=== PATIENT | male | born 1970 | race Caucasian/White ===

== ENCOUNTER 2016-10-23 09:27 | Emergency (ER) | payer MEDICAID, OTHER ==
--- NOTE | 2016-10-23 10:04 | EDPHY ---
H & P Time Seen by Provider: 10/23/16 09:50 HPI/ROS: CHIEF COMPLAINT: Tooth infection HISTORY OF PRESENT ILLNESS: Patient is a 46-year-old male with recurrent tooth infection. The patient states he developed an infected tooth a few weeks ago. He is placed on penicillin. He took his entire course. He went saw dentist was told that he needed a root canal. He was unable to for for the procedure so he has been shopping for dentist. He found a new dentist who placed him on amoxicillin for return of his dental pain and facial swelling. He has taken 1 day of the amoxicillin thus far. He came in the emergency department because he was concerned amoxicillin is not working. He has no fevers or chills. The swelling is been stable. No pain with movement of his jaw. REVIEW OF SYSTEMS: My complete review of systems is negative except as mentioned in the HPI. Past Medical/Surgical History: Includes dental infection Smoking Status: Current every day smoker Physical Exam: Vitals noted General Appearance: Alert and no distress. Head/face: Pupils equal. Normal. Patient has poor dentition in the left upper aspect of his jaw. There is mild dental tenderness palpation. No surrounding erythema or discharge. He has no facial redness. Mild left-sided facial swelling. Respiratory: No respiratory distress. Cardiac: regular rate and rhythm. Extremities: Full range of motion, normal appearing. Skin: No rashes or lesions. Neuro: Alert. Normal mood and affect. Constitutional: Initial Vital Signs Temperature (C) 36.6 C 10/23/16 09:30 Heart Rate 88 10/23/16 09:30 Respiratory Rate 14 10/23/16 09:30 Blood Pressure 133/89 H 10/23/16 09:30 O2 Sat (%) 96 10/23/16 09:30 O2 Delivery Mode Room Air Allergies/Adverse Reactions: meperidine HCl [From Demerol] Allergy (Unknown, Verified 04/30/16 14:51) "makes me sick" Home Medications: Medication Instructions Recorded Hydrocodone/APAP 5/325 [[place] 1 - 2 each PO Q6 PRN #20 tab 04/30/16 5/325] Penicillin V Potassium [Pen Vk] 500 mg PO TID #21 tab 04/30/16 Clindamycin HCl [Clindamycin] 300 mg PO TID #30 cap 10/23/16 Medical Decision Making ED Course/Re-evaluation: In the emergency department I discussed possible etiologies with the patient. I recommend he continue the amoxicillin. If he does not improve by tomorrow morning he will start clindamycin. He was given a prescription for this. He is aware he needs close follow-up with his dentist for possible tooth extraction versus root canal. He is given warnings prior to leaving. He will return with worsening symptoms. Differential Diagnosis: My differential includes but is not limited to dental fracture, dental caries, abscess, cellulitis Departure - Departure Disposition: Home, Routine, Self-Care Clinical Impression: Tooth ache Condition: Good Instructions: Toothache (ED) Referrals: [facility] [Outside] - As per Instructions [facility] [Outside] - As per Instructions Prescriptions: Clindamycin HCl [Clindamycin] 300 mg PO TID #30 cap
[2016-10-23 10:18] VITALS: BP 133/87; PULSE 76; RESP 16; TEMP 98.1; O2SAT 98
== END 2016-10-23 10:18 | disposition home or self-care (01) ==
DX: K08.89 Other specified disorders of teeth and supporting structures (principal); F17.200 Nicotine dependence, unspecified, uncomplicated

== ENCOUNTER 2017-01-10 11:59 | Emergency (ER) | payer MEDICAID ==
[2017-01-10] MEDS ORDERED: LORazepam 1 MG TAB PO ONE (12:19)
--- NOTE | 2017-01-10 12:20 | EDPHY ---
HPI/HX/ROS/PE/MDM Narrative: CHIEF COMPLAINT:M1 hold, suicidal HPI: patient is a 46-year-old male who admits to ongoing meth use. He was brought to the emergency department by [place] [employer] on an M1 hold. They were contacted by female, apparently his girlfriend, who states that the patient was suicidal. Patient told them that he had a plan to either jump in front of a vehicle or potentially fake pulling a gun on the police that they would kill him. The patient admits to this on my exam. He denies any other significant concerns or complaints. REVIEW OF SYSTEMS: Aside from elements discussed in the HPI, a comprehensive 10-point review of systems was reviewed and is negative. PMH: Includes history of meth amphetamine abuse, depression SOCIAL HISTORY: admits to amphetamine abuse. Has a girlfriend. PHYSICAL EXAM: General:Patient is awake, in no acute distress. Head: Atraumatic, normocephalic ENT:Eyes are normal to inspection. ENT inspection normal. Neck: Normal inspection. Full range of motion. Respiratory:No respiratory distress. No stridor. Skin: Normal color. No rash. Warm and dry. Extremities: Normal appearance. Full range of motion. Neuro: Normal motor function. Normal sensory function. Psychiatric: Depressed affect. Admits to active suicidal ideation. (Jermaine Arreguin) MDM: Care assumed at 1500 by Rodríguez with plan for evaluation when clinically cleared. Positive for methamphetamine. Signed out to the overnight physician Dr. Aguilar at 2200. (Scot Hinojosa) 0155AM: Patient has been seen evaluated by mental health. They are recommending CSU placement. 0603AM: This patient has been accepted at [facility]. EMTALA will be filled out. Appropriate transfer be set up. 0704AM: This patient was adamant about not going to [facility]. Mental help please re-consult this morning and evaluated him. They felt that does not need inpatient psychiatric hospitalization. They feel comfortable with him being discharged. Dr. Calderón with psychiatry was consulted and would like to lift a hold. He can be discharged safely from the emergency room. I did going Greet the patient and talk to him he does contract for safety feels better with this plan of going home as he wants to retain his job. Contracts for safety he however does understand if he feels suicidal or anger or any questions or concerns or change in his mood he should return immediately to the emergency room. (Ankit Aguilar) - Data Points Laboratory Results: Laboratory Results 01/10/17 12:30 01/10/17 12:30 Medications Given: Discontinued Medications Acetaminophen (Tylenol) 650 mg PO EDNOW ONE Stop: 01/11/17 01:49 Last Admin: 01/11/17 01:50 Dose: 650 mg Lorazepam (Ativan) 1 mg PO EDNOW ONE Stop: 01/10/17 12:20 Last Admin: 01/10/17 12:39 Dose: 1 mg Lorazepam (Ativan) 1 mg PO EDNOW ONE Stop: 01/11/17 01:49 Last Admin: 01/11/17 01:51 Dose: 1 mg Olanzapine (Zyprexa Zydis) 10 mg PO EDNOW ONE Stop: 01/10/17 13:10 Last Admin: 01/10/17 13:15 Dose: 10 mg General Time Seen by Provider: 01/10/17 12:00 Initial Vital Signs: Initial Vital Signs Temperature (C) 36.9 C 01/10/17 12:09 Heart Rate 112 H 01/10/17 12:09 Respiratory Rate 24 H 01/10/17 12:09 Blood Pressure 118/103 H 01/10/17 12:09 O2 Sat (%) 95 01/10/17 12:09 O2 Delivery Mode Room Air Allergies/Adverse Reactions: meperidine HCl [From Demerol] Allergy (Unknown, Verified 04/30/16 14:51) "makes me sick" Home Medications: Medication Instructions Recorded Hydrocodone/APAP 5/325 [[place] 1 - 2 each PO Q6 PRN #20 tab 04/30/16 5/325] Penicillin V Potassium [Pen Vk] 500 mg PO TID #21 tab 04/30/16 Clindamycin HCl [Clindamycin] 300 mg PO TID #30 cap 10/23/16 Departure - Departure Disposition: Home, Routine, Self-Care Clinical Impression: Suicidal ideation, Methamphetamine abuse Condition: Good Instructions: Depression (ED) Additional Instructions: 1. Return emergency room immediately if he develops any worsening symptoms. This includes feeling suicidal worsening depression or you do not feel well please return immediately to the emergency room. Referrals: [facility],. [Clinic] - As per Instructions Jose Mednia MD [Medical Doctor] - As per Instructions
[2017-01-10 12:56] LABS: % IMMATURE GRANULYOCYTES 0.2 % (0.0-1.1); ABSOLUTE IMMATURE GRANULOCYTES 0.01 10^3/uL (0.00-0.10); ADD DIFF? NO; ADD MORPH? NO; ADD SCAN? NO; ATYPICAL LYMPHOCYTE FLAG 10 (0-99); FRAGMENT RBC FLAG 0 (0-99); HEMATOCRIT 44.3 % (40.0-51.0); HEMOGLOBIN 15.6 g/dL (13.7-17.5); LEFT SHIFT FLG 0 (0-99); LIPEMIA HEMOLYSIS FLAG 90 (0-99); MEAN CELL HEMOGLOBIN 32.1 pg (27.9-34.1); MEAN CELL HEMOGLOBIN CONCENTR. 35.2 g/dL (32.4-36.7); MEAN CELL VOLUME 91.2 fL (81.5-99.8); MEAN PLATELET VOLUME 10.1 fL (8.7-11.7); PLATELET CLUMPS FLAG 0 (0-99); PLATELET COUNT 245 10^3/uL (150-400); RED BLOOD CELL COUNT 4.86 10^6/uL (4.40-6.38); RED CELL DISTRIBUTION WIDTH 13.1 % (11.5-15.2)
[2017-01-10] MEDS ORDERED: OLANZapine DISINTEGR 10 MG TAB PO ONE (13:09)
[2017-01-10 13:11] LABS: ANION GAP 16 mEq/L (8-16); CARBON DIOXIDE 18 mEq/l (22-31); CHLORIDE 105 mEq/L (97-110); CREATININE 0.9 mg/dL (0.7-1.3); ETHANOL SERUM < 10 mg/dL (0-10); GLOMERULAR FILTRATION RATE > 60; GLUCOSE 106 mg/dL (70-100); POTASSIUM 4.1 mEq/L (3.5-5.2); SODIUM 139 mEq/L (134-144)
[2017-01-10 23:20] VITALS: O2SAT 97
[2017-01-11] MEDS ORDERED: ACETAMINOPHEN 325 MG TAB PO ONE (01:48)
[2017-01-11] MEDS ORDERED: LORazepam 1 MG TAB PO ONE (01:48)
[2017-01-11] MEDS ORDERED: ACETAMINOPHEN 325 MG TAB ONE (01:49)
[2017-01-11] MEDS ORDERED: LORazepam 1 MG TAB ONE (01:49)
[2017-01-11 06:07] VITALS: TEMP 97.9
[2017-01-11 07:21] VITALS: BP 116/73; PULSE 76; RESP 16
== END 2017-01-11 07:21 | disposition home or self-care (01) ==
DX: R45.851 Suicidal ideations (principal); F15.10 Other stimulant abuse, uncomplicated
CPT/HCPCS: 80305; G0480

== ENCOUNTER 2017-03-02 23:19 | Emergency (ER) | payer MEDICAID ==
[2017-03-02 23:32] VITALS: BP 121/85; PULSE 110; RESP 18; TEMP 98.2; O2SAT 94
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
== END 2017-03-03 01:10 ==
DX: S90.32XA Contusion of left foot, initial encounter (principal); S70.02XA Contusion of left hip, initial encounter; F17.200 Nicotine dependence, unspecified, uncomplicated; Y08.89XA Assault by other specified means, initial encounter
CPT/HCPCS: L4386

== ENCOUNTER → 2017-03-29 | Outpatient (CLI) | payer MEDICAID | LOC: FLAB 15:17 | PROVIDERS: ATTEND Family Medicine | DX: Z11.1 Encounter for screening for respiratory tuberculosis (principal) ==